=== PATIENT | male | born 1970 | race Caucasian/White ===

== ENCOUNTER → 2021-06-27 | Outpatient (CLI) | payer OTHER, MEDICARE ==
[~2021-06-27] MED LIST: ALLOPURINOL 10100 M3 PO; AMITRIPTYLINE150 MG PO; EUTHYROX75 MCG PO; EVOXAC30 MG PO; FEROSUL325 M1 PO; FOLIC ACID1 MG PO; LOTENSIN20 MG PO; NEURONTIN300 MG PO; OPANA ER PO; OXYCODONE HCL10 MG PO; PROTONIX40 M2 PO; PROZAC40 MG PO; VITAMIN B-121000 MC2 SUBLING; WELLBUTRIN XL150 MG PO; ZANTAC PO; ZOCOR 20 MG TAB20 M1 PO
== END ==
LOC: M.PC 11:14
PROVIDERS: ATTEND Anesthesiology Pain Medicine
DX: G89.29 Other chronic pain (principal); M25.511 Pain in right shoulder; M25.512 Pain in left shoulder; K21.9 Gastro-esophageal reflux disease without esophagitis; M48.00 Spinal stenosis, site unspecified; I10 Essential (primary) hypertension; E78.5 Hyperlipidemia, unspecified; G47.00 Insomnia, unspecified; E03.9 Hypothyroidism, unspecified; M19.90 Unspecified osteoarthritis, unspecified site; M10.9 Gout, unspecified; F34.89 Other specified persistent mood disorders; Z91.048 Other nonmedicinal substance allergy status; Z79.899 Other long term (current) drug therapy